=== PATIENT | male | born 1985 | race Caucasian/White ===

== ENCOUNTER 2017-04-18 16:50 | Emergency (ER) | payer MEDICAID, OTHER ==
[2017-04-18 17:04] VITALS: O2SAT 95
[2017-04-18 17:27] VITALS: BP 130/82; PULSE 111; RESP 22; TEMP 99
[2017-04-18 17:41] LABS: AMPHETAMINES NEGATIVE (NEGATIVE); METHADONE NEGATIVE (NEGATIVE); OPIATES(OP13) NEGATIVE (NEGATIVE); OXYCODONE(OXY) NEGATIVE (NEGATIVE); PROPOXYPHENE(PPX) NEGATIVE (NEGATIVE); TRICYCLIC ANTIDEPRESSANTS NEGATIVE (NEGATIVE)
== END 2017-04-18 17:47 | DRG 897 ==
LOC: ED 16:50
DX: F15.10 Other stimulant abuse, uncomplicated (principal)
CPT/HCPCS: 80305; 99282